=== PATIENT | male | born 1955 | race Caucasian/White ===

== ENCOUNTER 2018-12-28 14:58 | Emergency (ER) | payer OTHER, BC ==
[~2018-12-28] VITALS: Ht 190.5 cm; Wt 101.2 kg
[2018-12-28] MEDS ORDERED: FENOFIBRATE120 MG PO (15:40)
[2018-12-28] MEDS ORDERED: XIGDUO XR 10 M1 EAC1 PO (15:41)
[2018-12-28] MEDS ORDERED: LOSARTAN POTASS50 MG PO (15:42)
== END 2018-12-28 17:20 | disposition home or self-care (01) ==
LOC: ED 14:58
DX: S20.219A Contusion of unspecified front wall of thorax, initial encounter (principal); I10 Essential (primary) hypertension; E11.9 Type 2 diabetes mellitus without complications; E78.00 Pure hypercholesterolemia, unspecified; Z88.5 Allergy status to narcotic agent; Z79.899 Other long term (current) drug therapy; V49.9XXA Car occupant (driver) (passenger) injured in unspecified traffic accident, initial encounter
CPT/HCPCS: 71046; 73030; 99284-25